=== PATIENT | female | born 1995 | race American Indian/Alaskan Native ===

== ENCOUNTER 2018-04-27 10:27 | Emergency (ER) | payer SELFPAY ==
[2018-04-27 10:37] VITALS: BP 121/83
[2018-04-27 11:12] LABS: Bacteria,Urine 1+ /HPF (Negative); Bilirubin,Urine NEG (Negative); Blood,Urine NEG (Negative); Color,Urine Yellow (Yellow); HCG Qualitative,Urine Negative (Negative); Mucus,Urine 3+ /HPF; Protein,Urine <15 mg/dL mg/dL (Negative)
[2018-04-27] MEDS ORDERED: ROCEPHIN IM ONE (11:19)
[2018-04-27] MEDS ORDERED: FLAGYL PO ONE (11:19)
[2018-04-27] MEDS ORDERED: XYLOCAINE 1% MPF 5 mL INFILTRATI ONE (11:19)
[2018-04-27] MEDS ORDERED: ZITHROMAX PO ONE (11:19)
[2018-04-27] MEDS ORDERED: DIFLUCAN PO ONE (11:29)
--- NOTE | 2018-04-27 11:31 | Emergency Department Report ---
ED Abdominal Pain HPI - General Chief Complaint: Abdominal Pain Stated Complaint: STOMACH PAIN/CRAMPS Time Seen by Provider: 04/27/18 11:05 Source: patient Mode of arrival: Ambulatory Limitations: No Limitations - History of Present Illness Initial Comments: Patient is a 22-year-old female who is complaining of some lower abdominal crampiness. Patient states she also has some associated vaginal irritation but denies dysuria or vaginal discharge. Patient is worried about trichomonas in particular. She is sexually active and has had this in the past with similar symptoms. Severity scale (0 -10): 5 Associated Symptoms: denies: nausea, vomiting, diarrhea, fever, chills, constipation, dysuria, hematemesis, hematochezia, melena, hematuria, anorexia - Related Data Home Medications Medication Instructions Recorded Confirmed Last Taken No Known Home Medications [No 10/11/12 10/11/12 Unknown Reported Home Medications] Allergies Allergy/AdvReac Type Severity Reaction Status Date / Time No Known Allergies Allergy Verified 04/27/18 10:27 ED Review of Systems ROS: Stated complaint: STOMACH PAIN/CRAMPS Other details as noted in HPI Comment: All other systems reviewed and negative ED Past Medical Hx - Past Medical History Previous Medical History?: Yes Additional medical history: NO PMH - Surgical History Past Surgical History?: No - Social History Smoking Status: Never Smoker Substance Use Type: None - Medications Home Medications: Home Medications Medication Instructions Recorded Confirmed Last Taken Type No Known Home Medications [No 10/11/12 10/11/12 Unknown History Reported Home Medications] ED Physical Exam - General Limitations: No Limitations General appearance: alert, in no apparent distress - Head Head exam: Present: atraumatic, normocephalic - Eye Eye exam: Present: normal appearance - ENT ENT exam: Present: mucous membranes moist - Neck Neck exam: Present: normal inspection - Respiratory Respiratory exam: Present: normal lung sounds bilaterally. Absent: respiratory distress, wheezes, rales, rhonchi - Cardiovascular Cardiovascular Exam: Present: regular rate, normal rhythm. Absent: systolic murmur, diastolic murmur, rubs, gallop - GI/Abdominal GI/Abdominal exam: Present: soft, normal bowel sounds. Absent: distended, tenderness, guarding, rebound, rigid - Extremities Exam Extremities exam: Present: normal inspection - Back Exam Back exam: Present: normal inspection - Neurological Exam Neurological exam: Present: alert, oriented X3 - Psychiatric Psychiatric exam: Present: normal affect, normal mood - Skin Skin exam: Present: warm, dry, intact, normal color. Absent: rash ED Course Vital Signs 04/27/18 10:33 Temperature 98.1 F Pulse Rate 93 H Respiratory 16 Rate Blood Pressure 121/83 [Left] O2 Sat by Pulse 98 Oximetry ED Medical Decision Making - Lab Data Lab Results 04/27/18 Range/Units 10:44 Urine Color Yellow (Yellow) Urine Turbidity Slightly-cloudy (Clear) Urine pH 6.0 (5.0-7.0) Ur Specific [place] 1.021 (1.003-1.030) Urine Protein <15 mg/dl (Negative) mg/dL Urine Glucose (UA) Neg (Negative) mg/dL Urine Ketones Tr (Negative) mg/dL Urine Blood Neg (Negative) Urine Nitrite Neg (Negative) Urine Bilirubin Neg (Negative) Urine Urobilinogen 4.0 (<2.0) mg/dL Ur Leukocyte Esterase Sm (Negative) Urine WBC (Auto) 4.0 (0.0-6.0) /HPF Urine RBC (Auto) 2.0 (0.0-6.0) /HPF U Epithel Cells (Auto) 5.0 (0-13.0) /HPF Urine Bacteria (Auto) 1+ (Negative) /HPF Urine Mucus 3+ /HPF Urine HCG, Qual Negative (Negative) - Medical Decision Making Patient to receive empiric STD prophylaxis. Urine is sent for gonorrhea Chlamydia culture. Patient discharged home. Critical care attestation.: If time is entered above; I have spent that time in minutes in the direct care of this critically ill patient, excluding procedure time. ED Disposition Clinical Impression: Vaginitis Qualifiers: Chronicity: acute Qualified Code(s): N76.0 - Acute vaginitis Disposition: TO HOME OR SELFCARE Is pt being admited?: No Does the pt Need Aspirin: No Condition: Stable Instructions: Vaginitis (ED) Referrals: MUKUL SANTOS MD [Primary Care Provider] - 3-5 Days Time of Disposition: 11:30
== END 2018-04-27 12:01 | disposition home or self-care (01) ==
LOC: ED 10:27
DX: N76.0 Acute vaginitis (principal)
CPT/HCPCS: 81001; 81025; 96372; 99283; J0696

== ENCOUNTER 2018-05-18 02:57 | Emergency (ER) | payer OTHER ==
[2018-05-18] MEDS ORDERED: MORPHINE ONE (03:08)
[2018-05-18] MEDS ORDERED: ZOFRAN ONE (03:08)
[2018-05-18] MEDS ORDERED: NACL 0.9% 1000 ML 1,000 ML IV ONE (03:09)
[2018-05-18] MEDS ORDERED: MORPHINE IV ONE ×2 (03:15→04:43)
[2018-05-18] MEDS ORDERED: ZOFRAN IV ONE (03:16)
[2018-05-18 03:33] LABS: Hematocrit 38.2 % (30.3-42.9); Hemoglobin 13.2 gm/dl (10.1-14.3); Mean Corpuscular HGB Conc 35 % (30-34); Mean Corpuscular Volume 95 fl (79-97); Platelet Count 310 K/mm3 (140-440); Red Blood Count 4.02 M/mm3 (3.65-5.03); Red Cell Distribution Width 12.8 % (13.2-15.2)
[2018-05-18 03:49] LABS: Alanine Aminotransferase 21 units/L (7-56); Albumin 4.7 g/dL (3.9-5); BUN/Creatinine Ratio 13; Blood Urea Nitrogen 8 mg/dL (7-17); Calcium 9.6 mg/dL (8.4-10.2); Hemolysis Index 9
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
[2018-05-18 06:02] VITALS: BP 127/86
[2018-05-18 07:08] LABS: Total Cells Counted 100
[2018-05-18 07:10] LABS: Giant Platelets Few; Platelet Estimate Consistent w Auto; Target Cells Few
== END 2018-05-18 06:43 | disposition designated cancer center or children's hospital (05) ==
LOC: ED 02:57
DX: S62.311A Displaced fracture of base of second metacarpal bone, left hand, initial encounter for closed fracture (principal); S62.313A Displaced fracture of base of third metacarpal bone, left hand, initial encounter for closed fracture; S62.315A Displaced fracture of base of fourth metacarpal bone, left hand, initial encounter for closed fracture; S62.102A Fracture of unspecified carpal bone, left wrist, initial encounter for closed fracture; V49.9XXA Car occupant (driver) (passenger) injured in unspecified traffic accident, initial encounter; Y93.89 Activity, other specified; Y92.410 Unspecified street and highway as the place of occurrence of the external cause; Y99.8 Other external cause status; R51 Headache
CPT/HCPCS: 29105; 36415; 70450; 71045; 71260; 72125; 72170; 73090; 73120; 74177; 80053; 85007; 85025; 96361; 96374; 96375; 96376; 99285; G0480; J2270; J2405; J7030; Q9967; 80320